=== PATIENT | male | born 1990 | race Caucasian/White ===

== ENCOUNTER 2018-07-12 20:37 | Emergency (ER) | payer OTHER ==
[2018-07-12 21:18] VITALS: BP 143/79
--- NOTE | 2018-07-12 22:08 | Emergency Department Report ---
Chief Complaint: Fall Stated Complaint: FALL Time Seen by Provider: 07/12/18 22:02 - HPI History of Present Illness: Pt c/o a fall that occurred today around 3 PM Pt states he was at the store and his shoe got stuck into a hole he says he fell backwards and hit his head he has been having a JOHN, N/V, and the lights are making his pain worse since the incident he also has lower back pain he denies any weakness, numbness, tingling, bowel or bladder incontinence (+) questionable LOC, remembers the incident no PMHx, no medications on a daily basis VSS MSE complete - Exam Vital Signs: Vital Signs 07/12/18 21:16 Temperature 97.5 F L Pulse Rate 79 Respiratory 18 Rate Blood Pressure 143/79 O2 Sat by Pulse 99 Oximetry MSE screening note: Focused history and physical exam performed. Due to findings the following was ordered: CT head, xr lumbar spine ED Disposition for MSE Condition: Stable
--- NOTE | 2018-07-12 22:54 | XRay Report ---
PROCEDURE: Lumbar spine. TECHNIQUE: AP and lateral views. HISTORY: ground level fall, lower back pain COMPARISONS: None. FINDINGS: The lumbar vertebrae have normal height and alignment. There are no fractures. There is no spondyloli sthesis. The disc spaces are well-maintained. The sacrum and sacroiliac joints appear normal. IMPRESSION: Normal study. This document is electronically signed by Charlie Plascencia MD., July 12 2018 10:52:32 PM ET
--- NOTE | 2018-07-12 22:57 | Cat Scan Report ---
PROCEDURE: CT HEAD/BRAIN WO CON TECHNIQUE: Spiral imaging of the brain is obtained without IV contrast. HISTORY: fall. JOHN with dizziness and N V COMPARISONS: None FINDINGS: FINDINGS: Brain: Brain density appears normal. No evidence of intracranial hemorrhage. No parenchymal hemorr bairon, mass lesions or mass effect are seen. No abnormal extra-axial fluid collects or masses are see n. Ventricles: Ventricles are normal size and are midline. Bone Windows: No evidence of skull fracture. There is an intermediate dense fluid collection posterio r inferior aspect of the occipital bones measuring 6.5 cm x 1.4 cm. This appears to represent a hemat yareli. Paranasal sinuses: Visualized portions appear clear.. Mastoid air cells: Visualized portions appear clear.. IMPRESSION: Scalp hematoma otherwise negative exam. No evidence of intracranial hemorrhage or skull fracture. IMPRESSION: . This document is electronically signed by Albert Bartholomew MD., July 12 2018 10:54:57 PM ET
[2018-07-12] MEDS ORDERED: ZOFRAN ODT PO ONE (23:27)
[2018-07-12] MEDS ORDERED: ULTRAM PO ONE (23:27)
[2018-07-12] MEDS ORDERED: ULTRAM ONE (23:31)
[2018-07-12] MEDS ORDERED: ZOFRAN ODT ONE (23:31)
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
== END 2018-07-13 00:31 | disposition home or self-care (01) ==
LOC: ED 20:37
DX: S06.9X9A Unspecified intracranial injury with loss of consciousness of unspecified duration, initial encounter (principal); F17.200 Nicotine dependence, unspecified, uncomplicated; W18.30XA Fall on same level, unspecified, initial encounter; Y93.01 Activity, walking, marching and hiking; Y92.89 Other specified places as the place of occurrence of the external cause; Y99.8 Other external cause status
CPT/HCPCS: 70450; 72100; Q0162

== ENCOUNTER 2018-07-16 22:18 | Emergency (ER) | payer OTHER ==
[2018-07-16 23:00] VITALS: BP 114/75
[2018-07-17] MEDS ORDERED: NORCO 5/325 PO ONE (03:53)
[2018-07-17] MEDS ORDERED: BENADRYL PO ONE (03:53)
[2018-07-17] MEDS ORDERED: DECADRON IM ONE (03:53)
[2018-07-17] MEDS ORDERED: REGLAN PO ONE (03:53)
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
== END 2018-07-17 05:33 | disposition left against medical advice (07) ==
LOC: ED 22:18
DX: R51 Headache (principal); F17.200 Nicotine dependence, unspecified, uncomplicated
CPT/HCPCS: 96372; 99282; J1100